=== PATIENT | female | born 1970 ===

== ENCOUNTER 2022-06-25 09:54 | Inpatient (IN) | payer SELFPAY ==
--- NOTE | 2022-06-25 10:46 | Emergency Department Report ---
ED Neuro Deficit HPI - General Chief Complaint: Headache Stated Complaint: TIA Time Seen by Provider: 06/25/22 10:21 Source: patient, EMS Mode of arrival: Stretcher Limitations: No Limitations - History of Present Illness Initial Comments: 52-year-old female with no significant past medical history presents to the hospital with complaints of elevated blood pressure and headache for the last 2 days. Patient complains of a global headache with progressively worsening right visual loss for the past 2 days. This morning headache became more severe upon waking this morning. At around 9 AM patient had states that she could not speak, had numbness to the right side of her body, and could not fully move her right extremities. She reports weakness upon EMS arrival. EMS reported a negative Irvine score. Patient states 2 days ago at [facility] she had a blood pressure of 182/109. She reports a history of a TIA in the past with full recovery and denies previous history of migraines or past diagnosis of hypertension. Headache is not exacerbated by light and patient denies nausea and vomiting. - Related Data Allergies/Adverse Reactions: Allergies Allergy/AdvReac Type Severity Reaction Status Date / Time No Known Allergies Allergy Verified 06/25/22 10:01 ED Review of Systems ROS: Stated complaint: TIA Other details as noted in HPI Comment: All other systems reviewed and negative ED Past Medical Hx - Past Medical History Hx Hypertension: Yes ED Neuro Physical Exam - General Limitations: No Limitations Suspected Stroke: Yes - NIHSS Assessment Interval: Baseline 1a. Level of Consciousness: alert/keenly responsive 1b. LOC Questions: answers both correctly 1c. LOC Commands: performs tasks correctly 2. Best Gaze: normal 3. Visual: partial hemianopia 4. Facial Palsy: normal symmetrical movement 5b. Motor Arm Right: drift 5a. Motor Arm Left: drift 6a. Motor Leg Left: no drift 6b. Motor Leg Right: drift 7. Limb Ataxia: present 1 limb 8. Sensory: normal 9. Best Language: mild/moderate aphasia 10. Dysarthria: normal 11. Extinction/Inattention: visual/tactile inattention Total Score: 7 Stroke Severity: Moderate Stroke - Other Other exam information: General: No acute distress Head: Atraumatic Eyes: normal appearance ENT: Moist mucous membranes Neck: Normal appearance, no midline tenderness Chest: Clear to auscultation bilaterally CV: Regular rate and rhythm Abdomen: Soft, normal bowel sounds, nontender, nondistended, no rebound or guarding Back: Normal inspection Extremity: Normal inspection, full range of motion Neuro: see NIHH stroke scale Psych: Appropriate behavior Skin: No rash ED Course Vital Signs 06/25/22 06/25/22 06/25/22 09:58 10:31 10:46 Temperature 97.8 F Pulse Rate 102 H 90 89 Respiratory 14 9 L 12 Rate Blood Pressure Blood Pressure 197/92 [Left] O2 Sat by Pulse 99 100 99 Oximetry 06/25/22 06/25/22 06/25/22 11:26 11:31 11:45 Temperature Pulse Rate 81 80 Respiratory 14 11 L Rate Blood Pressure 166/91 156/85 Blood Pressure [Left] O2 Sat by Pulse 100 100 98 Oximetry 06/25/22 06/25/22 06/25/22 12:01 12:15 12:31 Temperature Pulse Rate 80 85 90 Respiratory 13 14 18 Rate Blood Pressure 156/85 149/87 149/87 Blood Pressure [Left] O2 Sat by Pulse 99 98 100 Oximetry 06/25/22 06/25/22 06/25/22 13:01 13:31 14:01 Temperature Pulse Rate 80 84 Respiratory 13 13 Rate Blood Pressure 160/89 133/83 140/75 Blood Pressure [Left] O2 Sat by Pulse 99 99 96 Oximetry 06/25/22 06/25/22 06/25/22 14:15 14:31 14:45 Temperature Pulse Rate 77 81 83 Respiratory 12 15 20 Rate Blood Pressure 147/83 147/83 143/74 Blood Pressure [Left] O2 Sat by Pulse 100 100 100 Oximetry 06/25/22 06/25/22 06/25/22 15:01 15:45 16:15 Temperature Pulse Rate 80 79 74 Respiratory 12 15 13 Rate Blood Pressure 143/74 150/84 145/83 Blood Pressure [Left] O2 Sat by Pulse 99 99 98 Oximetry 06/25/22 06/25/22 06/25/22 16:31 16:45 17:01 Temperature Pulse Rate 73 73 76 Respiratory 12 13 13 Rate Blood Pressure 145/83 161/83 161/83 Blood Pressure [Left] O2 Sat by Pulse 99 99 99 Oximetry 06/25/22 06/25/22 06/25/22 17:11 17:15 17:31 Temperature Pulse Rate 77 89 73 Respiratory 12 16 14 Rate Blood Pressure 161/83 133/90 133/90 Blood Pressure [Left] O2 Sat by Pulse 99 98 100 Oximetry 06/25/22 06/25/22 06/25/22 17:45 18:01 18:15 Temperature Pulse Rate 69 75 72 Respiratory 12 12 9 L Rate Blood Pressure 138/84 138/84 151/83 Blood Pressure [Left] O2 Sat by Pulse 100 99 100 Oximetry 06/25/22 06/25/22 06/25/22 18:31 18:45 19:01 Temperature Pulse Rate 72 70 70 Respiratory 13 13 12 Rate Blood Pressure 151/83 130/79 130/79 Blood Pressure [Left] O2 Sat by Pulse 99 99 99 Oximetry 06/25/22 06/25/22 06/25/22 19:15 19:31 19:45 Temperature Pulse Rate 71 71 79 Respiratory 12 13 14 Rate Blood Pressure 143/81 143/81 134/80 Blood Pressure [Left] O2 Sat by Pulse 95 95 95 Oximetry 06/25/22 06/25/22 06/25/22 20:01 20:15 20:31 Temperature Pulse Rate 73 76 69 Respiratory 11 L 13 7 L Rate Blood Pressure 134/80 153/92 153/92 Blood Pressure [Left] O2 Sat by Pulse 98 99 99 Oximetry 06/25/22 06/25/22 06/25/22 20:45 21:01 21:15 Temperature Pulse Rate 68 66 67 Respiratory 12 14 14 Rate Blood Pressure 132/77 132/77 135/78 Blood Pressure [Left] O2 Sat by Pulse 99 98 98 Oximetry 06/25/22 06/25/22 06/25/22 21:31 21:45 22:01 Temperature Pulse Rate 66 67 67 Respiratory 13 13 13 Rate Blood Pressure 135/78 138/79 138/79 Blood Pressure [Left] O2 Sat by Pulse 99 99 99 Oximetry 06/25/22 06/25/22 06/25/22 22:15 22:31 22:45 Temperature Pulse Rate 71 73 66 Respiratory 13 8 L 12 Rate Blood Pressure 138/79 138/79 149/84 Blood Pressure [Left] O2 Sat by Pulse 99 100 100 Oximetry 06/25/22 06/25/22 06/25/22 23:01 23:15 23:31 Temperature Pulse Rate 65 65 70 Respiratory 12 12 10 L Rate Blood Pressure 149/84 134/75 134/75 Blood Pressure [Left] O2 Sat by Pulse 100 100 98 Oximetry 06/25/22 06/26/22 06/26/22 23:45 00:01 00:15 Temperature Pulse Rate 67 70 69 Respiratory 12 11 L 11 L Rate Blood Pressure 148/81 134/75 126/76 Blood Pressure [Left] O2 Sat by Pulse 98 98 99 Oximetry 06/26/22 06/26/22 06/26/22 00:31 00:45 01:01 Temperature Pulse Rate 72 68 74 Respiratory 15 11 L 4 L Rate Blood Pressure 126/76 136/85 136/85 Blood Pressure [Left] O2 Sat by Pulse 99 100 98 Oximetry 06/26/22 06/26/22 06/26/22 01:15 01:31 01:45 Temperature Pulse Rate 69 75 70 Respiratory 8 L 11 L 8 L Rate Blood Pressure 141/84 141/84 143/90 Blood Pressure [Left] O2 Sat by Pulse 99 99 100 Oximetry 06/26/22 06/26/22 06/26/22 02:00 08:00 08:11 Temperature Pulse Rate 70 Respiratory 10 L Rate Blood Pressure 141/84 155/79 Blood Pressure [Left] O2 Sat by Pulse 100 100 Oximetry 06/26/22 06/26/22 06/26/22 08:19 08:36 08:58 Temperature Pulse Rate 79 77 Respiratory 14 14 Rate Blood Pressure 155/79 155/79 127/79 Blood Pressure [Left] O2 Sat by Pulse 97 Oximetry 06/26/22 06/26/22 06/26/22 09:00 09:16 09:30 Temperature Pulse Rate 73 70 84 Respiratory 8 L 11 L 13 Rate Blood Pressure 127/79 124/74 155/79 Blood Pressure [Left] O2 Sat by Pulse 99 97 97 Oximetry - Consultations Consultation #1: 06/25/22 Case was discussed with several times while control room technician neurologist Dr. Te Alfaro. Patient was deemed not a tPA candidate due to onset of symptoms 2 days ago. Vertebral artery occlusion does not require intervention. Patient will be admitted here for further stroke work-up. He recommended aspirin 325 mg, Plavix 300 mg, Atrovent statin 80 mg. Please refer to his note for further recommendations - Lab Data Result diagrams: 06/26/22 04:36 06/26/22 04:36 Lab Results 06/25/22 06/25/22 06/25/22 Range/Units 11:19 11:19 11:19 WBC 12.1 H (4.5-11.0) K/mm3 RBC 5.45 H (3.65-5.03) M/mm3 Hgb 12.1 (10.1-14.3) gm/dl Hct 39.5 (30.3-42.9) % MCV 73 L (79-97) fl MCH 22 L (28-32) pg MCHC 31 (30-34) % RDW 14.6 (13.2-15.2) % Plt Count 336 (140-440) K/mm3 Lymph % (Auto) 18.4 (13.4-35.0) % Bacon % (Auto) 3.7 (0.0-7.3) % Eos % (Auto) 1.4 (0.0-4.3) % Baso % (Auto) 0.5 (0.0-1.8) % Lymph # (Auto) 2.2 (1.2-5.4) K/mm3 Bacon # (Auto) 0.4 (0.0-0.8) K/mm3 Eos # (Auto) 0.2 (0.0-0.4) K/mm3 Baso # (Auto) 0.1 (0.0-0.1) K/mm3 Seg Neutrophils % 76.0 H (40.0-70.0) % Seg Neutrophils # 9.2 H (1.8-7.7) K/mm3 PT 12.2 (12.2-14.9) Sec. INR 0.82 L (0.87-1.13) APTT 28.5 (24.2-36.6) Sec. Thrombin Time 15.9 (15.1-19.6) Sec. Sodium 135 L (137-145) mmol/L Potassium 4.5 (3.6-5.0) mmol/L Chloride 98.7 (98-107) mmol/L Carbon Dioxide 23 (22-30) mmol/L Anion Gap 18 mmol/L BUN 11 (7-17) mg/dL Creatinine 1.0 (0.6-1.2) mg/dL Estimated GFR 58 ml/min BUN/Creatinine Ratio 11 % Glucose 85 (65-100) mg/dL Calcium 9.7 (8.4-10.2) mg/dL Total Bilirubin < 0.20 (0.1-1.2) mg/dL AST 17 (5-40) units/L ALT 17 (7-56) units/L Alkaline Phosphatase 98 (35-129) units/L Total Creatine Kinase 109 (30-135) units/L CK-MB (CK-2) 2.5 (0.0-4.0) ng/mL CK-MB (CK-2) Rel Index 2.2 (0-4) Troponin T < 0.010 (0.00-0.029) ng/mL Total Protein 6.6 (6.3-8.2) g/dL Albumin 4.0 (3.9-5) g/dL Albumin/Globulin Ratio 1.5 % - EKG Data -: EKG Interpreted by Ar EKG shows normal: sinus rhythm, ST-T waves (no stemi) Rate: normal - Radiology Data Radiology results: report reviewed CT HEAD WITHOUT CONTRAST INDICATION / CLINICAL INFORMATION: Stroke symptoms. TECHNIQUE: Axial imaging performed from the skull apex through the skull base without the use of contrast. Sagittal and coronal reformatted images. All CT scans at this location are performed using CT dose reduction for PictelaRA by means of automated exposure control. COMPARISON: None available. FINDINGS: CEREBRAL PARENCHYMA: There is a 2.5 x 1.9 cm area of diminished attenuation in the left occipital lobe on image 14, series 2 which is suspicious for an evolving ischemic infarct. The remaining brain parenchyma is normal density. No hyperdense vessel is detected on noncontrast CT. HEMORRHAGE: None. EXTRA-AXIAL SPACES: Normal in size and morphology for the patient's age. VENTRICULAR SYSTEM: Normal in size and morphology for the patient's age. MIDLINE SHIFT OR HERNIATION: None. CEREBELLUM / BRAINSTEM: No significant abnormality. CALVARIUM: No significant abnormality. ORBITS: Normal as visualized. PARANASAL SINUSES / MASTOID AIR CELLS: Normal as visualized. SOFT TISSUES of HEAD: No significant abnormality. ADDITIONAL FINDINGS: None. IMPRESSION: No evidence for hemorrhage. There is a suspicious area of diminished attenuation in the left occipital lobe as described above concerning for an evolving ischemic infarct. Consider further evaluation with MRI. CT angio neck, CT angio head HISTORY: stroke sx COMPARISON: None. TECHNIQUE: CTA of the neck and head is performed after IV contrast. 3-D/MIP reformats were postprocessed. Percentage stenosis is determined by direct quantitative measurements of diseased internal carotid artery diameter compared with normal distal internal carotid artery reference segments or by criteria similar to NASCET where applicable. All CT scans at this location are performed using CT dose reduction for ALARA by means of automated exposure control. FINDINGS: CTA NECK: Aortic arch: The left common carotid artery and brachiocephalic artery share a short trunk. No significant abnormality. Cervical vertebral arteries: The right vertebral artery is occluded at its origin. There is reconstitution seen within the V2 segment and distally. Common Carotid arteries: No occlusion or hemodynamically significant stenosis. Internal carotid arteries: No occlusion or hemodynamically significant stenosis. CTA HEAD: Intracranial internal carotid arteries: No occlusion or significant stenosis. Anterior cerebral arteries: No occlusion or significant stenosis. Middle cerebral arteries: No occlusion or significant stenosis. Intracranial vertebral arteries: No occlusion or significant stenosis. Basilar artery: No occlusion or significant stenosis. Posterior cerebral arteries: No occlusion or significant stenosis. No aneurysm. Additional findings: Groundglass opacity seen within the posterior segment right upper lobe.. IMPRESSION: 1. CTA NECK: The right vertebral artery is occluded at its origin with distal reconstitution. 2. CTA HEAD: No proximal large vessel occlusion. 3. Nonspecific ground glass opacities in the right upper lobe. Recommend CT chest with contrast to further characterize. - Medical Decision Making 52-year-old female presents to the hospital with subacute stroke with primary headache and right visual deficits. CT head suggestive of subacute left occipital infarct and patient also has right vertebral artery occlusion which is not amenable to acute intervention at this time. Patient treated with p.o. meds as recommended by neurologist. Morphine and Zofran provided for headache. Patient complained of some burning anterior chest pain and had a repeat EKG wi thout acute findings, negative troponin, and was provided Pepcid IV. Case was managed in consultation with neurology. hospitalist to admit Critical Care Time: Yes Critical care time in (mins) excluding proc time.: 40 Critical care attestation.: If time is entered above; I have spent that time in minutes in the direct care of this critically ill patient, excluding procedure time. Critical Care Time: 40 Minutes of critical care time excluding procedures were used in the care of the patient. I came immediately to the bedside upon patient's arrival. I obtained history from EMS at the bedside. I discussed treatment plan with the nursing team members. I reviewed electronic record. Patient required multiple interventions and reassessments. Spoke with hospitalist and consultants for collaborative care ED Disposition Clinical Impression: Acute CVA (cerebrovascular accident), Occipital infarction Vertebral artery occlusion Qualifiers: Laterality: right Qualified Code(s): I65.01 - Occlusion and stenosis of right vertebral artery Headache Qualifiers: Headache type: tension-type Disposition: 09 ADMITTED INPATIENT Is pt being admited?: Yes Does the pt Need Aspirin: Yes Condition: Stable Time of Disposition: 13:10 (Dr Nguyen/hospitalist)
[2022-06-25] MEDS ORDERED: MORPHINE 4 MG/1 ML INJ IV ONE (11:12)
[2022-06-25] MEDS ORDERED: ONDANSETRON 4 MG/2 ML INJ IV ONE (11:12)
--- NOTE | 2022-06-25 11:14 | Consultation ---
History of Present Illness History of present illness: [facility] Consult Note # Demographics Consult Type: Acute Stroke Level 1 (0-4.5 hrs) Patient Location: Emergency Room First Name: Juancho Last Name: Susan Date of : 1970 Age: 52 Gender: Female Facility: [facility] Time of Initial Page (): 06/25/2022, 10:39 Time of Return Call ( Time): 06/25/2022, 10:41 # HPI Chief Complaint: vision changes speech changes History: 52F without known medical problems presents with two days of headache and progressive right eye blurry vision. BP done two days ago, 182/109. This morning, headache worse and at 0900 she was having trouble speaking and right- sided weakness. On arrival to ED, appears uncomfortable and whispering. Appears to have a field cut and possible right facial droop. Slow with FNF on the right compared to the left. BP 197/92 initially. # Scores Time of exam and NIHSS (): 06/25/2022, 11:03 Level of Consciousness 1a: [0] = Alert; keenly responsive LOC Questions 1b: [0] = Answers both questions correctly LOC Commands 1c: [0] = Performs both tasks correctly Best Gaze 2: [0] = Normal Visual 3: [0] = No visual loss Facial Palsy 4: [1] = Minor paralysis Motor Arm Left 5a: [1] = Drift Motor Arm Right 5b: [1] = Drift Motor Leg Left 6a: [0] = No drift Motor Leg Right 6b: [1] = Drift Limb Ataxia 7: [1] = Present in one limb Sensory 8: [1] = [id number] sensory loss Best Language 9: [0] = No aphasia Dysarthria 10: [0] = Normal Extinction and Inattention 11: [1] = Visual, tactile, auditory, spatial, or personal inattention NIHSS Total: 7 # Data Time Head CT personally read by me (): 06/25/2022, 11:[address]: no bleed left occipital lobe edema, likely ischemia CTA Head: no large vessel occlusion preliminarily reviewed by me, please refer to radiology read for official reading # Assessment Impression: Ischemic Stroke (Subacute) # Plan Thrombolytic/Intervention: NOT IV Thrombolysis or IA Intervention candidate Thrombolytic Exclusion: > 4.5 hours Intraarterial Exclusion: no large vessel occlusion (LVO) Target Blood Pressure: SBP < 220 DBP < 105 Labs: hemoglobin A1c lipid panel Imaging: (urgency: routine): MRI Brain without contrast Diagnostic Test: echo with bubble study Medication: ASA 325 Atorvastatin 80 DVT Prophylaxis: SCD chemical DVT prophylaxis Other: If patient has any neurological deterioration please call me back immediately permissive hypertension telemetry monitoring I have discussed my recommendations with the referring provider Disposition: admit # Logistics Telemedicine: Interactive 2 way audio and visual telecommunication technology was utilized during this visit # Demographics First Name: Consonant Last Name: [facility] Facility: [facility] Electronically signed at 06/25/2022 11:13 (Eastern Time) by Dominic Kelley MD Medications and Allergies Allergies Allergy/AdvReac Type Severity Reaction Status Date / Time No Known Allergies Allergy Verified 06/25/22 10:01 Physical Examination - Vital Signs Vital Signs: Vital Signs Temp Pulse Resp BP Pulse Ox 97.8 F 102 H 14 197/92 99 06/25/22 09:58 06/25/22 09:58 06/25/22 09:58 06/25/22 09:58 06/25/22 09:58
--- NOTE | 2022-06-25 11:15 | Cat Scan Report ---
CT HEAD WITHOUT CONTRAST INDICATION / CLINICAL INFORMATION: Stroke symptoms. TECHNIQUE: Axial imaging performed from the skull apex through the skull base without the use of cont rast. Sagittal and coronal reformatted images. All CT scans at this location are performed using CT dose reduction for ALARA by means of automated exposure control. COMPARISON: None available. FINDINGS: CEREBRAL PARENCHYMA: There is a 2.5 x 1.9 cm area of diminished attenuation in the left occipital lob e on image 14, series 2 which is suspicious for an evolving ischemic infarct. The remaining brain par enchyma is normal density. No hyperdense vessel is detected on noncontrast CT. HEMORRHAGE: None. EXTRA-AXIAL SPACES: Normal in size and morphology for the patient's age. VENTRICULAR SYSTEM: Normal in size and morphology for the patient's age. MIDLINE SHIFT OR HERNIATION: None. CEREBELLUM / BRAINSTEM: No significant abnormality. CALVARIUM: No significant abnormality. ORBITS: Normal as visualized. PARANASAL SINUSES / MASTOID AIR CELLS: Normal as visualized. SOFT TISSUES of HEAD: No significant abnormality. ADDITIONAL FINDINGS: None. IMPRESSION: No evidence for hemorrhage. There is a suspicious area of diminished attenuation in the left occipital lobe as described above co ncerning for an evolving ischemic infarct. Consider further evaluation with MRI. CODE STROKE: Time of Communication (COLLECTION CLERK/CDT): 1008 hours Licensed Practitioner Receiving Report: Dr. Dangelo Signer Name: Lemuel Nix Jr, MD Signed: 06/25/2022 11:11 AM Workstation Name: [id number]
[2022-06-25 11:26] LABS: Basophils # (Auto) 0.1 K/mm3 (0.0-0.1); Basophils % (Auto) 0.5 % (0.0-1.8); Eosinophils # (Auto) 0.2 K/mm3 (0.0-0.4); Eosinophils % (Auto) 1.4 % (0.0-4.3); Hematocrit 39.5 % (30.3-42.9); Hemoglobin 12.1 gm/dl (10.1-14.3); Lymphocytes # (Auto) 2.2 K/mm3 (1.2-5.4); Lymphocytes % (Auto) 18.4 % (13.4-35.0); Mean Corpuscular HGB Conc 31 % (30-34); Mean Corpuscular Volume 73 fl (79-97); Monocytes # (Auto) 0.4 K/mm3 (0.0-0.8); Monocytes % (Auto) 3.7 % (0.0-7.3); Platelet Count 336 K/mm3 (140-440); Red Blood Count 5.45 M/mm3 (3.65-5.03); Red Cell Distribution Width 14.6 % (13.2-15.2)
--- NOTE | 2022-06-25 11:35 | Cat Scan Report ---
CT angio neck, CT angio head HISTORY: stroke sx COMPARISON: None. TECHNIQUE: CTA of the neck and head is performed after IV contrast. 3-D/MIP reformats were postproces sed. Percentage stenosis is determined by direct quantitative measurements of diseased internal pearl tid artery diameter compared with normal distal internal carotid artery reference segments or by crit eria similar to NASCET where applicable. All CT scans at this location are performed using CT dose re duction for ALARA by means of automated exposure control. FINDINGS: CTA NECK: Aortic arch: The left common carotid artery and brachiocephalic artery share a short trunk. No signif icant abnormality. Cervical vertebral arteries: The right vertebral artery is occluded at its origin. There is reconstit ution seen within the V2 segment and distally. Common Carotid arteries: No occlusion or hemodynamically significant stenosis. Internal carotid arteries: No occlusion or hemodynamically significant stenosis. CTA HEAD: Intracranial internal carotid arteries: No occlusion or significant stenosis. Anterior cerebral arteries: No occlusion or significant stenosis. Middle cerebral arteries: No occlusion or significant stenosis. Intracranial vertebral arteries: No occlusion or significant stenosis. Basilar artery: No occlusion or significant stenosis. Posterior cerebral arteries: No occlusion or significant stenosis. No aneurysm. Additional findings: Groundglass opacity seen within the posterior segment right upper lobe.. IMPRESSION: 1. CTA NECK: The right vertebral artery is occluded at its origin with distal reconstitution. 2. CTA HEAD: No proximal large vessel occlusion. 3. Nonspecific ground glass opacities in the right upper lobe. Recommend CT chest with contrast to fu rther characterize. I informed charge nurse at 10:28 , the doctor wasnt at desk. Signer Name: Herve Do MD Signed: 06/25/2022 11:31 AM Workstation Name: [id number]
[2022-06-25 11:38] LABS: INR 0.82 (0.87-1.13)
[2022-06-25 11:39] LABS: Partial Thromboplastin Time 28.5 Sec. (24.2-36.6); Thrombin Time 15.9 Sec. (15.1-19.6)
[2022-06-25] MEDS ORDERED: CLOPIDOGREL 300 MG TAB PO ONE (11:40)
[2022-06-25 12:48] LABS: Creatine Kinase MB 2.5 ng/mL (0.0-4.0)
[2022-06-25 12:49] LABS: Alanine Aminotransferase 17 units/L (7-56); BUN/Creatinine Ratio 11; Blood Urea Nitrogen 11 mg/dL (7-17); Calcium 9.7 mg/dL (8.4-10.2); Hemolysis Index 11
[2022-06-25] MEDS ORDERED: ASPIRIN 325 MG TAB PO ONE (12:55)
[2022-06-25] MEDS ORDERED: FAMOTIDINE 20 MG/2 ML INJ IV ONE (12:56)
[2022-06-25] MEDS ORDERED: ONDANSETRON 4 MG/2 ML INJ IV PRN ×4 (13:29→18:51)
[2022-06-25] MEDS ORDERED: ACETAMINOPHEN 325 MG TAB PO PRN ×4 (13:29→18:51)
[2022-06-25] MEDS: MORPHINE 2 MG/1 ML INJ IV PRN (14:45)
--- NOTE | 2022-06-25 18:31 | History and Physical Report ---
History of Present Illness Date of examination: 06/25/22 Date of admission: 06/25/22 13:29 Chief complaint: Right-sided numbness and weakness since 9 AM History of present illness: 52-year-old female with history of hypertension comes in for headache of 2 days duration. Associated with right visual loss for the past 2 days. This morning patient had severe headache associated with nausea. Also numbness and weakness on the right side of the body including right facial right upper extremity and right lower extremity. Had difficulty talking. Also could not walk. Her blood pressure has been very high for the last few days. Patient is not on any blood pressure medication. Patient had a blood pressure of 182/109 at [facility] 2 days ago. Apparently patient had TIA 1 year ago which resolved completely. Some improvement in symptoms over the last 3 to 4 hours. No exacerbating or relieving factors. No pain. Headache is severe and pain is about 10 on a scale of 1-10. Intermittent in nature. Nausea present. No vomiting. No fever or chills. Past History Past Medical History: hypertension Past Surgical History: No surgical history Social history: lives with family, full code Family history: hypertension Medications and Allergies Allergies Allergy/AdvReac Type Severity Reaction Status Date / Time No Known Allergies Allergy Verified 06/25/22 10:01 Active Meds: Active Medications Acetaminophen (Acetaminophen 325 Mg Tab) 650 mg PO Q4H PRN PRN Reason: Pain MILD(1-3)/Fever >100.5/SANTIAGO Atorvastatin Calcium (Atorvastatin 40 Mg Tab) 80 mg PO QHS DESHAUN Morphine Sulfate (Morphine 2 Mg/1 Ml Inj) 2 mg IV Q4H PRN PRN Reason: Pain, Moderate (4-6) Last Admin: 06/25/22 14:45 Dose: 2 mg Ondansetron HCl (Ondansetron 4 Mg/2 Ml Inj) 4 mg IV Q8H PRN PRN Reason: Nausea And Vomiting Sodium Chloride (Sodium Chloride 0.9% 10 Ml Flush Syringe) 10 ml IV BID DESHAUN Sodium Chloride (Sodium Chloride 0.9% 10 Ml Flush Syringe) 10 ml IV PRN PRN PRN Reason: LINE FLUSH Review of Systems All systems: negative Constitutional: fatigue, no weight loss, no weight gain, no fever, no chills, no sweats, no night sweats, no anorexia Ears, nose, mouth and throat: headache (Severe headache. Right temporal area--10/10 intermittent.) Breasts: deferred Cardiovascular: no chest pain, no orthopnea, no palpitations, no rapid/irregular heart beat, no edema, no syncope, no lightheadedness, no shortness of breath Respiratory: no cough, no cough with sputum, no excessive sputum, no hemoptysis, no shortness of breath, no dyspnea on exertion Gastrointestinal: no abdominal pain, no nausea, no vomiting, no diarrhea, no constipation, no change in bowel habits, no hematemesis, no coffee ground emesis Genitourinary Female: no urinary frequency, no urgency, no stress incontinence Menstruation: ammenorrhea Musculoskeletal: no neck stiffness, no neck pain, no shooting arm pain, no arm numbness/tingling, no low back pain, no shooting leg pain, no leg numbness/tingling, no redness of joints Integumentary: no rash, no pruritis, no redness, no sores, no wounds, no jaundice, no boils, no blisters Neurological: weakness (Right upper extremity and right lower extremity weakness.), numbness (Right-sided numbness present.), headaches (Severe headache for 2 days most on the right temporal area) Psychiatric: anxiety, no change in sleep habits, no sleep disturbances, no insomnia, no hypersomnia, no change in appetite Endocrine: no cold intolerance, no heat intolerance, no polyphagia, no excessive thirst, no polydipsia, no polyuria, no nocturia, no excessive sweating, no flushing, no weight change Hematologic/Lymphatic: no easy bruising, no easy bleeding Allergic/Immunologic: no urticaria, no allergic rhinitis, no wheezing Exam - Constitutional Vitals: Temp Pulse Resp BP Pulse Ox 97.8 F 76 13 161/83 99 06/25/22 09:58 06/25/22 17:01 06/25/22 17:01 06/25/22 17:01 06/25/22 17:01 General appearance: Present: no acute distress, well-nourished - EENT Eyes: Present: PERRL ENT: hearing intact, clear oral mucosa - Neck Neck: Present: supple, normal ROM - Respiratory Respiratory effort: normal Respiratory: bilateral: CTA - Cardiovascular Heart rate: 78 Rhythm: regular Heart Sounds: Present: S1 & S2. Absent: rub, click - Extremities Extremities: no ischemia, pulses symmetrical, No edema Peripheral Pulses: within normal limits - Abdominal General gastrointestinal: Present: soft, non-tender, non-distended, normal bowel sounds Female genitourinary: Present: normal - Integumentary Integumentary: Present: clear, warm, dry - Musculoskeletal Musculoskeletal: strength equal bilaterally, right sided weakness (4/5 power right upper extremity and right lower extremity.) - Psychiatric Psychiatric: appropriate mood/affect, intact judgment & insight - Neurologic Neurologic: CNII-XII intact, moves all extremities, other (Unsteady gait) HEART Score - HEART Score Troponin: Troponin T < 0.010 ng/mL (0.00-0.029) 06/25/22 11:19 Results - Labs CBC & Chem 7: 06/26/22 04:36 06/26/22 04:36 Labs: Laboratory Last Values WBC 12.1 K/mm3 (4.5-11.0) H 06/25/22 11:19 RBC 5.45 M/mm3 (3.65-5.03) H 06/25/22 11:19 Hgb 12.1 gm/dl (10.1-14.3) 06/25/22 11:19 Hct 39.5 % (30.3-42.9) 06/25/22 11:19 MCV 73 fl (79-97) L 06/25/22 11:19 MCH 22 pg (28-32) L 06/25/22 11:19 MCHC 31 % (30-34) 06/25/22 11:19 RDW 14.6 % (13.2-15.2) 06/25/22 11:19 Plt Count 336 K/mm3 (140-440) 06/25/22 11:19 Lymph % (Auto) 18.4 % (13.4-35.0) 06/25/22 11:19 [place] % (Auto) 3.7 % (0.0-7.3) 06/25/22 11:19 Eos % (Auto) 1.4 % (0.0-4.3) 06/25/22 11:19 Baso % (Auto) 0.5 % (0.0-1.8) 06/25/22 11:19 Lymph # (Auto) 2.2 K/mm3 (1.2-5.4) 06/25/22 11:19 [place] # (Auto) 0.4 K/mm3 (0.0-0.8) 06/25/22 11:19 Eos # (Auto) 0.2 K/mm3 (0.0-0.4) 06/25/22 11:19 Baso # (Auto) 0.1 K/mm3 (0.0-0.1) 06/25/22 11:19 Seg Neutrophils % 76.0 % (40.0-70.0) H 06/25/22 11:19 Seg Neutrophils # 9.2 K/mm3 (1.8-7.7) H 06/25/22 11:19 PT 12.2 Sec. (12.2-14.9) 06/25/22 11:19 INR 0.82 (0.87-1.13) L 06/25/22 11:19 APTT 28.5 Sec. (24.2-36.6) 06/25/22 11:19 Thrombin Time 15.9 Sec. (15.1-19.6) 06/25/22 11:19 Sodium 135 mmol/L (137-145) L 06/25/22 11:19 Potassium 4.5 mmol/L (3.6-5.0) 06/25/22 11:19 Chloride 98.7 mmol/L (98-107) 06/25/22 11:19 Carbon Dioxide 23 mmol/L (22-30) 06/25/22 11:19 Anion Gap 18 mmol/L 06/25/22 11:19 BUN 11 mg/dL (7-17) 06/25/22 11:19 Creatinine 1.0 mg/dL (0.6-1.2) 06/25/22 11:19 Estimated GFR 58 ml/min 06/25/22 11:19 BUN/Creatinine Ratio 11 % 06/25/22 11:19 Glucose 85 mg/dL (65-100) 06/25/22 11:19 Calcium 9.7 mg/dL (8.4-10.2) 06/25/22 11:19 Total Bilirubin < 0.20 mg/dL (0.1-1.2) 06/25/22 11:19 AST 17 units/L (5-40) 06/25/22 11:19 ALT 17 units/L (7-56) 06/25/22 11:19 Alkaline Phosphatase 98 units/L (35-129) 06/25/22 11:19 Total Creatine Kinase 109 units/L (30-135) 06/25/22 11:19 CK-MB (CK-2) 2.5 ng/mL (0.0-4.0) 06/25/22 11:19 CK-MB (CK-2) Rel Index 2.2 (0-4) 06/25/22 11:19 Troponin T < 0.010 ng/mL (0.00-0.029) 06/25/22 11:19 Total Protein 6.6 g/dL (6.3-8.2) 06/25/22 11:19 Albumin 4.0 g/dL (3.9-5) 06/25/22 11:19 Albumin/Globulin Ratio 1.5 % 06/25/22 11:19 Short CBC 06/25/22 06/26/22 Range/Units 11:19 04:36 WBC 12.1 H 10.6 (4.5-11.0) K/mm3 Hgb 12.1 11.3 (10.1-14.3) gm/dl Hct 39.5 36.4 (30.3-42.9) % Plt Count 336 353 (140-440) K/mm3 BMP 06/25/22 06/26/22 11:19 04:36 Sodium 135 L 136 L Potassium 4.5 4.3 Chloride 98.7 98.3 Carbon Dioxide 23 25 BUN 11 11 Creatinine 1.0 0.8 Glucose 85 78 Calcium 9.7 9.8 Cardiac Enzymes 06/25/22 Range/Units 11:19 Total Creatine Kinase 109 (30-135) units/L CK-MB (CK-2) 2.5 (0.0-4.0) ng/mL Troponin T < 0.010 (0.00-0.029) ng/mL Liver Function 06/25/22 06/26/22 Range/Units 11:19 04:36 Total Bilirubin < 0.20 0.30 (0.1-1.2) mg/dL AST 17 15 (5-40) units/L ALT 17 16 (7-56) units/L Alkaline Phosphatase 98 93 (35-129) units/L Albumin 4.0 3.8 L (3.9-5) g/dL - Imaging and Cardiology EKG: report reviewed (Sinus rhythm heart rate of 78/min no acute ST-T wave changes) CT Scan - head: report reviewed Imaging and Cardiology: Head CT No evidence for hemorrhage There is a suspicious area of diminished attenuation in the left occipital lobe as described above concerning for evolving ischemic infarct. Consider further evaluation with MRI. 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 CTA head no proximal large vessel occlusion. Chest with groundglass appearance is in the right Recommends 50 with contrast to further characterize. Assessment and Plan Advance Directives: Yes (Full code) VTE prophylaxis?: Chemical Plan of care discussed with patient/family: Yes - Patient Problems (1) Acute CVA (cerebrovascular accident) Current Visit: Yes Status: Acute Plan to address problem: Patient has right-sided weakness and possible infarction on the left occipital lobe. CVA protocol Aspirin 325 p.o. daily Stroke education Controlled blood pressure at reasonable range of 150/90 to 140/80 Physical therapy and Occupational Therapy Neurology consult MRI and echocardiogram in the morning No need for MRA and carotid duplex scan because head CT and neck CTA were done in the emergency room NIHSS score (2) Headache Current Visit: Yes Status: Acute Qualifiers: Headache type: tension-type Plan to address problem: Treat symptomatically (3) Hypertensive emergency Current Visit: Yes Status: Acute Plan to address problem: Initial blood pressure was 197/92 which is improved to 166/91 with IV analgesics Patient initiated on losartan 100 mg once a day (4) Hyponatremia Current Visit: Yes Status: Acute Plan to address problem: Mild IV normal saline for 12 hours (5) Hyperlipidemia Current Visit: Yes Status: Chronic Qualifiers: Hyperlipidemia type: mixed hyperlipidemia Qualified Code(s): E78.2 - Mixed hyperlipidemia Plan to address problem: Patient has high triglycerides and LDL of 197 High-dose statins initiated (6) DVT prophylaxis Current Visit: Yes Status: Acute Plan to address problem: On heparin and GI prophylaxis (7) Advance care planning Current Visit: Yes Status: Acute Plan to address problem: Disease education conducted, care plan discussed, diagnosis discussed and prognosis discussed. Patient acknowledged understanding with care plan. +30 minutes. Patient is full code.
[2022-06-25] MEDS ORDERED: oxyCODONE /ACETAMINOPHEN 5-325MG TAB PO PRN (18:43)
[2022-06-25] MEDS ORDERED: METOCLOPRAMIDE 10 MG/2 ML INJ IV PRN (18:43)
[2022-06-25] MEDS ORDERED: SODIUM CHLORIDE 0.9% 1000 ML 1,000 ML IV SCH (18:45)
[2022-06-25] MEDS ORDERED: PROMETHAZINE 25 MG RECT SUPP PR PRN (18:51)
[2022-06-25] MEDS ORDERED: MAGNESIUM HYDROXIDE (MOM) ORAL LIQD UDC PO PRN (18:51)
[2022-06-25] MEDS ORDERED: METOCLOPRAMIDE 10 MG TAB PO PRN (18:51)
[2022-06-25] MEDS ORDERED: FAMOTIDINE 20 MG/2 ML INJ IV SCH (22:00)
[2022-06-26 06:02] LABS: Basophils # (Auto) 0.1 K/mm3 (0.0-0.1); Basophils % (Auto) 0.6 % (0.0-1.8); Eosinophils # (Auto) 0.2 K/mm3 (0.0-0.4); Eosinophils % (Auto) 1.6 % (0.0-4.3); Hematocrit 36.4 % (30.3-42.9); Hemoglobin 11.3 gm/dl (10.1-14.3); Lymphocytes # (Auto) 3.2 K/mm3 (1.2-5.4); Lymphocytes % (Auto) 30.4 % (13.4-35.0); Mean Corpuscular HGB Conc 31 % (30-34); Mean Corpuscular Volume 73 fl (79-97); Monocytes # (Auto) 0.5 K/mm3 (0.0-0.8); Monocytes % (Auto) 4.5 % (0.0-7.3); Platelet Count 353 K/mm3 (140-440); Red Blood Count 5.02 M/mm3 (3.65-5.03); Red Cell Distribution Width 15.1 % (13.2-15.2)
[2022-06-26 06:15] LABS: Alanine Aminotransferase 16 units/L (7-56); Albumin 3.8 g/dL (3.9-5); BUN/Creatinine Ratio 14; Blood Urea Nitrogen 11 mg/dL (7-17); Calcium 9.8 mg/dL (8.4-10.2); Chol/HDL Ratio 5.62 %; HDL Cholesterol 48 mg/dL (40-59); Hemolysis Index 7; LDL Cholesterol,Direct 197 mg/dL (50-130)
--- NOTE | 2022-06-26 08:27 | Electrocardiograph Report ---
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
[2022-06-26] MEDS: MORPHINE 2 MG/1 ML INJ IV PRN (09:14)
[2022-06-26 09:38] VITALS: BP 155/79
[2022-06-26] MEDS ORDERED: ASPIRIN 325 MG TAB PO SCH (10:00)
[2022-06-26] MEDS ORDERED: LORazepam 2 MG/ML VIAL IV NR (10:00)
[2022-06-26] MEDS ORDERED: LOSARTAN 50 MG TAB PO SCH (10:00)
[2022-06-26] MEDS ORDERED: HALOPERIDOL LACTATE 5 MG/1 ML INJ IM ONE (10:01)
[2022-06-26] MEDS ORDERED: HALOPERIDOL LACTATE 5 MG/1 ML INJ ONE (10:03)
--- NOTE | 2022-06-26 16:55 | Consultation ---
History of Present Illness Consult date: 06/26/22 History of present illness: Patient has left AMA, per ED. Past History Past Medical History: hypertension Past Surgical History: No surgical history Social history: lives with family, full code Family history: hypertension Medications and Allergies Allergies Allergy/AdvReac Type Severity Reaction Status Date / Time No Known Allergies Allergy Verified 06/25/22 10:01 Active Meds: Active Medications Acetaminophen (Acetaminophen 325 Mg Tab) 650 mg PO Q4H PRN PRN Reason: Pain, Mild (1-3) Aspirin (Aspirin 325 Mg Tab) 325 mg PO QDAY [facility] Atorvastatin Calcium (Atorvastatin 40 Mg Tab) 80 mg PO QHS [facility] Last Admin: 06/26/22 01:19 Dose: Not Given Bisacodyl (Bisacodyl 10 Mg Rect Supp) 10 mg MO QDAY PRN PRN Reason: Constipation Famotidine (Famotidine 20 Mg/2 Ml Inj) 20 mg IV BID [facility] Last Admin: 06/26/22 01:19 Dose: Not Given Sodium Chloride (Nacl 0.9% 1000 Ml) 1,000 mls @ 75 mls/hr IV DIRECT [facility] Losartan Potassium (Losartan 50 Mg Tab) 50 mg PO QDAY [facility] Magnesium Hydroxide (Magnesium Hydroxide (Mom) Oral Liqd Udc) 30 ml PO Q4H PRN PRN Reason: Constipation Metoclopramide HCl (Metoclopramide 10 Mg/2 Ml Inj) 10 mg IV Q6H PRN PRN Reason: Nausea And Vomiting Metoclopramide HCl (Metoclopramide 10 Mg Tab) 10 mg PO Q6H PRN PRN Reason: Nausea And Vomiting Morphine Sulfate (Morphine 2 Mg/1 Ml Inj) 2 mg IV Q4H PRN PRN Reason: Pain, Moderate (4-6) Last Admin: 06/26/22 09:14 Dose: 2 mg Ondansetron HCl (Ondansetron 4 Mg/2 Ml Inj) 4 mg IV Q8H PRN PRN Reason: Nausea And Vomiting Oxycodone/Acetaminophen (Oxycodone /Acetaminophen 5-325mg Tab) 1 tab PO Q6H PRN PRN Reason: Pain, Moderate (4-6) Last Admin: 06/26/22 09:14 Dose: 1 tab Promethazine HCl (Promethazine 25 Mg Rect Supp) 25 mg MO Q6H PRN PRN Reason: Nausea And Vomiting Sodium Chloride (Sodium Chloride 0.9% 10 Ml Flush Syringe) 10 ml IV BID DESHAUN Last Admin: 06/26/22 01:19 Dose: Not Given Sodium Chloride (Sodium Chloride 0.9% 10 Ml Flush Syringe) 10 ml IV PRN PRN PRN Reason: LINE FLUSH Physical Examination - Vital Signs Vital Signs: Vital Signs Temp Pulse Resp BP Pulse Ox 97.8 F 102 H 14 197/92 99 06/25/22 09:58 06/25/22 09:58 06/25/22 09:58 06/25/22 09:58 06/25/22 09:58 Results - Laboratory Findings CBC and BMP: 06/26/22 04:36 06/26/22 04:36 Abnormal Lab Findings: Abnormal Labs 06/25/22 06/25/22 06/25/22 11:19 11:19 11:19 WBC 12.1 H RBC 5.45 H MCV 73 L MCH 22 L Seg Neutrophils % 76.0 H Seg Neutrophils # 9.2 H INR 0.82 L Sodium 135 L Albumin Cholesterol LDL Cholesterol Direct 06/26/22 06/26/22 04:36 04:36 WBC RBC MCV 73 L MCH 23 L Seg Neutrophils % Seg Neutrophils # INR Sodium 136 L Albumin 3.8 L Cholesterol 270 H LDL Cholesterol Direct 197 H Assessment and Plan Patient has left AMA, per ED.
--- NOTE | 2022-06-26 20:06 | Discharge Summary ---
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 Associated with right visual loss for the past 2 days. This morning patient had severe headache associated with nausea. Also numbness and weakness on the right side of the body including right facial right upper extremity and right lower extremity. Had difficulty talking. Also could not walk. Her blood pressure has been very high for the last few days. Patient is not on any blood pressure medication. Patient had a blood pressure of 182/109 at [facility] 2 days ago. Apparently patient had TIA 1 year ago which resolved completely. Some improvement in symptoms over the last 3 to 4 hours. No exacerbating or relieving factors. No pain. Headache is severe and pain is about 10 on a scale of 1-10. Intermittent in nature. Nausea present. No vomiting. No fever or chills. 06/26/2022 Patient left AMA before MRI could be done - Patient Problems (1) Acute CVA (cerebrovascular accident) Current Visit: Yes Status: Acute Plan to address problem: Patient has right-sided weakness and possible infarction on the left occipital lobe. CVA protocol Aspirin 325 p.o. daily Stroke education Controlled blood pressure at reasonable range of 150/90 to 140/80 Physical therapy and Occupational Therapy Neurology consult MRI and echocardiogram in the morning No need for MRA and carotid duplex scan because head CT and neck CTA were done in the emergency room NIHSS score Patient left AMA before work-up could be done (2) Headache Current Visit: Yes Status: Acute Qualifiers: Headache type: tension-type Plan to address problem: Treat symptomatically (3) Hypertensive emergency Current Visit: Yes Status: Acute Plan to address problem: Initial blood pressure was 197/92 which is improved to 166/91 with IV analgesics Patient initiated on losartan 100 mg once a day (4) Hyponatremia Current Visit: Yes Status: Acute Plan to address problem: Mild IV normal saline for 12 hours (5) Hyperlipidemia Current Visit: Yes Status: Chronic Qualifiers: Hyperlipidemia type: mixed hyperlipidemia Qualified Code(s): E78.2 - Mixed hyperlipidemia Plan to address problem: Patient has high triglycerides and LDL of 197 High-dose statins initiated (6) DVT prophylaxis Current Visit: Yes Status: Acute Plan to address problem: On heparin and GI prophylaxis (7) Advance care planning Current Visit: Yes Status: Acute Plan to address problem: Disease education conducted, care plan discussed, diagnosis discussed and prognosis discussed. Patient acknowledged understanding with care plan. +30 minutes. Patient is full code. Disposition: LEFT AGAINST MEDICAL ADVICE Final Discharge Diagnosis (Prints w/discharge instructions): Acute CVA. Hypertensive emergency. Hyponatremia. Hyperlipidemia Time spent for discharge: 36 minutes - Discharge Diagnoses (1) Acute CVA (cerebrovascular accident) Status: Acute (2) Headache Status: Acute Qualifiers: Headache type: tension-type (3) Hypertensive emergency Status: Acute (4) Hyponatremia Status: Acute (5) Hyperlipidemia Status: Chronic Qualifiers: Hyperlipidemia type: mixed hyperlipidemia Qualified Code(s): E78.2 - Mixed hyperlipidemia (6) DVT prophylaxis Status: Acute (7) Advance care planning Status: Acute Core Measure Documentation - Palliative Care Palliative Care/ Comfort Measures: Not Applicable - Core Measures Any of the following diagnoses?: none Exam - Constitutional Vitals: Temp Pulse Resp BP Pulse Ox 97.8 F 84 13 155/79 97 06/25/22 09:58 06/26/22 09:30 06/26/22 09:30 06/26/22 09:30 06/26/22 09:30 General appearance: Present: no acute distress, well-nourished - EENT Eyes: Present: PERRL ENT: hearing intact, clear oral mucosa - Neck Neck: Present: supple, normal ROM - Respiratory Respiratory effort: normal Respiratory: bilateral: CTA - Cardiovascular Heart rate: 78 Heart Sounds: Present: S1 & S2. Absent: rub, click - Extremities Extremities: pulses symmetrical, No edema Peripheral Pulses: within normal limits - Abdominal General gastrointestinal: Present: soft, non-tender, non-distended, normal bowel sounds Female genitourinary: Present: normal - Integumentary Integumentary: Present: clear, warm, dry - Musculoskeletal Musculoskeletal: gait normal, strength equal bilaterally - Psychiatric Psychiatric: appropriate mood/affect, intact judgment & insight - Neurologic Neurologic: CNII-XII intact, moves all extremities Plan Activity: no restrictions Diet: low fat, low cholesterol, low salt Care Plan Goals: Left AMA Assessment: Left AMA Follow up with: ROX PINEDA MD [Primary Care Provider] - 7 Days
--- NOTE | 2022-06-28 09:41 | Electrocardiograph Report ---
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
== END 2022-06-26 14:20 | disposition left against medical advice (07) | DRG 65 ==
LOC: ED 09:54 → 4A 13:29
PROVIDERS: ADMIT Internal Medicine; ATTEND Internal Medicine
DX: I63.9 Cerebral infarction, unspecified (principal); E87.1 Hypo-osmolality and hyponatremia; I16.1 Hypertensive emergency; G81.91 Hemiplegia, unspecified affecting right dominant side; Z53.29 Procedure and treatment not carried out because of patient's decision for other reasons; I65.01 Occlusion and stenosis of right vertebral artery; I10 Essential (primary) hypertension; E78.2 Mixed hyperlipidemia; Z82.49 Family history of ischemic heart disease and other diseases of the circulatory system
CPT/HCPCS: 36415; 70450; 70496; 70498; 80053; 80061; 82550; 82553; 84484; 85025; 85610; 85670; 85730; 93005; 93306; 99291; G0378; J3490; C8929; J1630; J2270; J2405; Q9967